=== PATIENT | female | born 1930 | race Caucasian/White ===

== ENCOUNTER → 2016-09-18 | Outpatient (CLI) | payer MEDICARE ==
[~2016-09-18] MED LIST: SIMV1POW MC
--- NOTE | 2016-09-18 11:53 | RAD ---
DATE: September 18, 2016 EXAM: MAMMO SHARLENE SCREENING BILATERAL HISTORY: Screening study. COMPARISON: 2014 and 2015 This study was interpreted with the benefit of Computerized Aided Detection (CAD). 2-D digital mammographic views of both breasts were performed in the CC and MLO projections. 3-D digital tomosynthesis of both breasts were performed in the CC and MLO projections and reviewed on a computer workstation. FINDINGS: The breast parenchyma is heterogeneously dense. There are no dominant suspicious masses, suspicious microcalcifications or evidence of architectural distortion. Coarse benign-appearing stable calcifications of the upper outer quadrant of the right breast posteriorly are seen. IMPRESSION: There are no mammographic indicators for malignancy. BI-RADS CATEGORY: 2 BENIGN FINDING RECOMMENDED FOLLOW-UP: 12M 12 MONTH FOLLOW-UP PQRS compliance statement: Patient information was entered into a reminder system with a target due date September 19, 2017 for the next mammogram. Mammography is a sensitive method for finding small breast cancers, but it does not detect them all and is not a substitute for careful clinical examination. A negative mammogram does not negate a clinically suspicious finding and should not result in delay in biopsying a clinically suspicious abnormality. "Our facility is accredited by the [employer] Mammography Program." The patient's breast density may affect the ability of mammography to detect breast cancer. There are 4 categories of breast density, A, B, C and D. Breast density A means that most of the breast tissue is replaced with adipose tissue and therefore is not dense. Breast density B means that the breast tissue is mildly dense and scattered. Breast density C means that the breast tissue is heterogeneously dense. Breast density D means that the breast tissue is very dense. Breast densities especially C and D may decrease the sensitivity of mammography to detect breast cancer. Therefore, the patient may benefit from 3-D breast mammography (3D breast tomography) as a part of their screening mammogram. Insurance may or may not pay for this additional imaging. The patient's breast density based on today's mammogram is category C.
== END | disposition home or self-care (01) ==
LOC: MAMMO 08:03
PROVIDERS: ATTEND Physician Assistant
DX: Z12.31 Encounter for screening mammogram for malignant neoplasm of breast (principal)
CPT/HCPCS: 77063; G0202; 77067

== ENCOUNTER 2016-12-31 20:53 | Emergency (ER) | payer MEDICARE ==
[~2016-12-31] VITALS: Ht 165.1 cm; Wt 50.2 kg
[2016-12-31] MEDS ORDERED: CEPH500T PO (21:08)
[2016-12-31] MEDS ORDERED: calcium (21:09)
--- NOTE | 2016-12-31 22:03 | RAD ---
Indication: Altered mental status and weakness. Axial imaging through the brain was performed without contrast. There is a large area of low density identified in the left frontal lobe, surrounding the left frontal horn as well as the body of the left lateral ventricle. There is a suggestion of an area of slightly rounded increased density noted in the left richard radiata measuring 1.8 cm in size. This is suspicious for a brain mass with a large amount of surrounding vasogenic edema. This does exert some mass effect upon the left lateral ventricle. Very minimal midline shift left to right is noted. Cisterns remain patent. No acute intra-axial or extra-axial hemorrhage is detected. IMPRESSION: 1. Findings suspicious for left brain mass, as described with a large amount of surrounding vasogenic edema. Further evaluation with MRI could be performed for improved characterization. No acute intracranial hemorrhage is detected. Electronically signed by: Aydin Alexis MD (12/31/2016 9:59 PM) [facility]
--- NOTE | 2016-12-31 22:27 | PHYS DOC ---
Adult General Chief Complaint Chief Complaint: WEAKNESS/GENERALIZED HPI HPI Patient is a 86 year old female who presents with altered mental status. Patient brought to the emergency department by her daughter and son. The patient has been having worsening confusion over the past 3 days. Family notes that the patient has been disoriented. They also started noticing worsening weakness and difficulty walking starting earlier today. The patient was showing evidence of right-sided weakness, as family states that she was leaning to the right when they were trying to assist earlier this evening. The patient is currently unable to provide any history but does follow commands. The patient had been seen yesterday by her primary physician. Urinalysis suggested infection and patient was started on Keflex. Family states despite starting the medication, the patient has been getting worse. They deny any fevers and patient has not complained of any pain. Review of Systems Review of Systems Patient denies any complaints but is only oriented to self at this time. Allergies Allergies Allergies Coded Allergies Type Severity Reaction Last Updated Verified No Known Drug Allergies 12/31/16 No Physical Exam Physical Exam Constitutional: Alert, afebrile, confused. [] HENT: Normocephalic, atraumatic, bilateral external ears normal, oropharynx moist, no oral exudates, nose normal. [] Eyes: PERRLA, EOMI, conjunctiva normal, no discharge. [] Neck: Normal range of motion, no tenderness, supple, no stridor. [] Cardiovascular:Heart rate regular rhythm, no murmur [] Lungs & Thorax: Bilateral breath sounds clear to auscultation [] Abdomen: Bowel sounds normal, soft, no tenderness, no masses, no pulsatile masses. [] Skin: Warm, dry, no erythema, no rash. [] Back: No tenderness, no CVA tenderness. [] Extremities: No tenderness, no cyanosis, no clubbing, ROM intact, no edema. [] Neurologic: Alert, delayed verbal responses, oriented to self only, 3 out of 5 strength in the bilateral lower extremities, 4 out of 5 strength in the bilateral upper extremities, mild pronator drift present in right upper extremity. [] Current Patient Data Vital Signs Vital Signs Date Time Temp Pulse Resp B/P (MAP) Pulse Ox O2 Delivery O2 Flow Rate FiO2 12/31/16 20:55 98.3 65 18 99 Room Air Lab Results Laboratory Tests Test 12/31/16 21:45 12/31/16 22:15 12/31/16 22:40 Urine Collection Type Unknown Urine Color Straw Urine Clarity Clear Urine pH 7.0 Urine Specific [place] 1.010 Urine Protein Neg Urine Glucose (UA) Neg mg/dL Urine Ketones (Stick) Neg mg/dL Urine Blood Neg Urine Nitrite Neg Urine Bilirubin Neg Urine Urobilinogen Dipstick 0.2 mg/dL Urine Leukocyte Esterase Neg Urine RBC 1-2 /HPF Urine WBC 1-4 /HPF Urine Squamous Epithelial Cells Few /LPF Urine Bacteria 0 /HPF White Blood Count 4.6 x10^3/uL Red Blood Count 4.46 x10^6/uL Hemoglobin 14.4 g/dL Hematocrit 41.6 % Mean Corpuscular Volume 93 fL Mean Corpuscular Hemoglobin 32 pg Mean Corpuscular Hemoglobin Concent 35 g/dL Red Cell Distribution Width 14.5 % Platelet Count 115 x10^3/uL Neutrophils (%) (Auto) 54 % Lymphocytes (%) (Auto) 35 % Monocytes (%) (Auto) 10 % Eosinophils (%) (Auto) 1 % Basophils (%) (Auto) 0 % Neutrophils # (Auto) 2.5 x10^3uL Lymphocytes # (Auto) 1.6 x10^3/uL Monocytes # (Auto) 0.5 x10^3/uL Eosinophils # (Auto) 0.0 x10^3/uL Basophils # (Auto) 0.0 x10^3/uL Lactic Acid Level 2.2 mmol/L Magnesium Level 1.8 mg/dL Sodium Level 148 mmol/L Potassium Level 3.6 mmol/L Chloride Level 112 mmol/L Carbon Dioxide Level 28 mmol/L Anion Gap 8 Blood Urea Nitrogen 7 mg/dL Creatinine 0.7 mg/dL Estimated GFR (Cockcroft-Gault) 79.7 BUN/Creatinine Ratio 10 Glucose Level 110 mg/dL Calcium Level 8.8 mg/dL Total Bilirubin 0.5 mg/dL Aspartate Amino Transf (AST/SGOT) 27 U/L Alanine Aminotransferase (ALT/SGPT) 40 U/L Alkaline Phosphatase 61 U/L Total Protein 6.2 g/dL Albumin 3.5 g/dL Albumin/Globulin Ratio 1.3 Current Medications Medications (Trade) Dose Ordered Sig/Asha Route PRN Reason Start Time Stop Time Status Last Admin Dose Admin Dexamethasone Sodium Phosphate (Decadron) 20 mg 1X ONCE IV 12/31/16 22:45 12/31/16 22:45 DC Dexamethasone Sodium Phosphate (Decadron) 10 mg STK-MED ONCE .ROUTE 12/31/16 22:33 12/31/16 22:34 DC Dexamethasone Sodium Phosphate (Decadron) 20 mg 1X ONCE IV 12/31/16 22:45 12/31/16 22:46 DC 12/31/16 22:35 EKG EKG Interpreted by me: Heart rate 70, sinus rhythm, normal intervals, normal axis, no acute ST/T-wave abnormalities present[] Radiology/Procedures Radiology/Procedures [address] [address] IMAGING REPORT Signed PATIENT: SARAH WEI ACCOUNT: [id number] : 1930 LOCATION: ER AGE: 86 SEX: F EXAM STATUS: REG ER ORD. PHYSICIAN: ELICIA JACK MD REASON: altered mental status, weakness PROCEDURE: CT HEAD WO CONTRAST Indication: Altered mental status and weakness. Axial imaging through the brain was performed without contrast. There is a large area of low density identified in the left frontal lobe, surrounding the left frontal horn as well as the body of the left lateral ventricle. There is a suggestion of an area of slightly rounded increased density noted in the left richard radiata measuring 1.8 cm in size. This is suspicious for a brain mass with a large amount of surrounding vasogenic edema. This does exert some mass effect upon the left lateral ventricle. Very minimal midline shift left to right is noted. Cisterns remain patent. No acute intra-axial or extra-axial hemorrhage is detected. IMPRESSION: 1. Findings suspicious for left brain mass, as described with a large amount of surrounding vasogenic edema. Further evaluation with MRI could be performed for improved characterization. No acute intracranial hemorrhage is detected. Electronically signed by: Aydin Alexis MD (12/31/2016 9:59 PM) [facility] DICTATED AND SIGNED BY: AYDIN ALEXIS MD DATE: 12/31/16 2156 CC: ELICIA JACK MD; IVANIA CARDENAS ~ [] Course & Med Decision Making Course & Med Decision Making Pertinent Labs and Imaging studies reviewed. (See chart for details) Patient's CT shows evidence of vasogenic edema and likely brain mass. Patient started on 20 mg of IV Decadron in the emergency department. I spoke with Kelin Henderson, advanced practice provider for Dr. Silverio of neurosurgery. They agreed consult on patient in hospital and agreed [facility] care. I spoke with Dr. Stinson, hospitalist, who accepted care patient in hospital. Family was informed of plan of care and in agreement upon time of disposition. Dragon Disclaimer Dragon Disclaimer This chart was dictated in whole or in part using Voice Recognition software in a busy, high-work load, and often noisy Emergency Department environment. It may contain unintended and wholly unrecognized errors or omissions. Departure Departure: Impression: Primary Impression: Vasogenic brain edema Additional Impressions: Brain mass Metabolic encephalopathy Disposition: XF SHT-TRM HOSP Condition: STABLE Referrals: IVANIA CARDENAS (PCP) Problem Qualifiers ELICIA JACK MD Dec 31, 2016 22:27
[2016-12-31] MEDS ORDERED: DEXAMETHASONE SOD PHOS 10 MG/ML VIAL ONE (22:33)
[2016-12-31 22:36] LABS: BILIRUBIN,URINE NEG (NEG); CLARITY,URINE CLEAR; COLOR,URINE STRAW; GLUCOSE,URINE NEG (NEG)
[2016-12-31 22:37] LABS: NITRITE,URINE NEG (NEG); UROBILINOGEN,URINE 0.2 mg/dL (0.2 mg/dL)
[2016-12-31 22:39] LABS: BACTERIA,URINE 0 /HPF (0-FEW); SQUAMOUS EPITHELIAL CELL,UR FEW /LPF
[2016-12-31 22:43] LABS: BASO % 0 % (0-3); EOS % 1 % (0-3); HEMATOCRIT 41.6 % (36.0-47.0); HEMOGLOBIN 14.4 g/dL (12.0-15.5); LYMPH # 1.6 x10^3/uL (1.0-4.8); LYMPH % 35 % (24-48); MEAN CORPUSCULAR HEMOGLOBIN 32 pg (25-35); MEAN CORPUSCULAR HGB CONC 35 g/dL (31-37); MEAN CORPUSCULAR VOLUME 93 fL (79-100); MONO # 0.5 x10^3/uL (0.0-1.1); MONO % 10 % (0-9); NEUT # 2.5 x10^3uL (1.8-7.7); NEUT % 54 % (31-73); PLATELET COUNT 115 x10^3/uL (140-400); RED BLOOD COUNT 4.46 x10^6/uL (3.50-5.40); RED CELL DISTRIBUTION WIDTH 14.5 % (11.5-14.5); WHITE BLOOD COUNT 4.6 x10^3/uL (4.0-11.0)
[2016-12-31] MEDS ORDERED: DEXAMETHASONE SOD PHOS 20 MG/5 ML VIAL. IV ONE (22:45)
[2016-12-31] MEDS ORDERED: DEXAMETHASONE SOD PHOS 10 MG/ML VIAL IV ONE (22:45)
--- NOTE | 2016-12-31 23:25 | EKG ---
[address] [address] Test Date: 2016-12-31 Test Time: 22:03:47 Pat Name: SARAH WEI Department: Room: Gender: F [employer]: EVIE : 1930 Requested By: ELICIA JACK Order Number: [id number] Reading MD: Measurements Intervals [place] Rate: 70 P: 90 AL: 150 QRS: 72 QRSD: 82 T: 56 QT: 394 QTc: 428 Interpretive Statements SINUS RHYTHM NORMAL ECG RI6.01 No previous ECG available for comparison
[2016-12-31 23:27] LABS: ALBUMIN 3.5 g/dL (3.4-5.0); ALBUMIN/GLOBULIN RATIO 1.3 (1.0-1.7); CALCIUM 8.8 mg/dL (8.5-10.1); CREATININE 0.7 mg/dL (0.6-1.0); GFR 79.7; POTASSIUM 3.6 mmol/L (3.5-5.1); TOTAL BILIRUBIN 0.5 mg/dL (0.2-1.0); TOTAL PROTEIN 6.2 g/dL (6.4-8.2)
[2017-01-01] MEDS ORDERED: IV NORMAL SALINE 1,000ML 1,000 ML IV ONE (00:15)
[2017-01-01 01:00] VITALS: BP 139/81
--- NOTE | 2017-01-01 09:24 | RAD ---
Exam performed: One view chest. Indication: altered mental status, rule out acute cardiopulmonary abnormality Date of Service: 12/31/2016 11:38 PM Comparison: None available. Single AP right portable view chest findings: Study somewhat limited due to rotation. Study somewhat limited due to rotation Cardiomediastinal silhouette is within limits of normal. No acute infiltrates, effusion or pneumothorax is detected. The bony structures are normal. Impression: No acute cardiopulmonary process is detected.
== END 2017-01-01 01:20 | disposition short-term general hospital (02) ==
LOC: ER 20:53
DX: G93.6 Cerebral edema (principal); G93.41 Metabolic encephalopathy
CPT/HCPCS: 36415; 70450; 71010; 80053; 81001; 83605; 83735; 85025; 87040; 93005; 96361; 96374; 99285; J1100; J7030